=== PATIENT | female | born 1945 | race Caucasian/White ===

== ENCOUNTER 2019-09-04 23:31 | Inpatient (IN) | payer OTHER ==
[~2019-09-04] VITALS: Ht 170.2 cm; Wt 79.0 kg
[2019-09-05] MEDS ORDERED: ONDANSETRON HCL 4 MG/2 ML VIAL IV ONE (00:45)
[2019-09-05] MEDS ORDERED: MORPHINE SULFATE 4 MG/ML SYR/VIAL IV ONE ×2 (00:45→04:15)
[2019-09-05] MEDS ORDERED: LORazepam 2MG/ML-1ML VIAL IV ONE ×3 (01:00→03:15)
[2019-09-05] MEDS ORDERED: SODIUM CHLORIDE 0.9% 500 ML IV ONE ×2 (01:45→13:45)
[2019-09-05 02:34] LABS: Urine Bacteria MANY /hpf (None Seen); Urine Blood Negative /uL (Negative); Urine Specific Gravity 1.013 (1.001-1.035); Urine WBC 117 /hpf (0 - 5); Urine WBC Clumps PRESENT /hpf (None Seen)
[2019-09-05 02:38] LABS: Basophils # (auto) 0 uL; Basophils % (auto) 0.3 % (0.0-2.0); Eosinophils # (auto) 0.1 uL; Eosinophils % (auto) 0.7 % (0.0-7.0); Hematocrit 33.8 % (36.0-46.0); Hemoglobin 11.3 g/dL (12.2-16.2); Lymphocytes # (auto) 1.1 uL; Lymphocytes % (auto) 13.1 % (10.0-50.0); Mean Corpuscular Hemoglobin 27.4 pg (28.0-32.0); Mean Corpuscular Hgb Conc. 33.4 g/dL (32.0-36.0); Monocytes # (auto) 0.4 uL; Monocytes % (auto) 5.1 % (0.0-12.0); Neutrophils % (auto) 80.8 % (37.0-80.0); Platelet Count (auto) 128 10^3/uL (140-450); Red Blood Cells 4.13 10^6/uL (4.0-5.20); Red Cell Distribution Width 18.4 % (11.8-14.3); White Blood Cell 8.7 10^3/uL (4.4-10.8)
[2019-09-05 02:50] LABS: INR 1.06 (0.9-1.15); Partial Thromboplastin Time 23.8 sec (23.64-32.05)
[2019-09-05 02:52] LABS: Albumin 3.7 g/dL (3.4-5.0); Calcium 8.4 mg/dL (8.5-10.1); Potassium 3.7 mmol/L (3.5-5.1)
[2019-09-05 02:57] LABS: Bilirubin, Total 0.3 mg/dL (0.2-1.0); Total Protein 7.1 g/dL (6.4-8.2)
[2019-09-05] MEDS ORDERED: diphenhdrAMINE HCL 50 MG/1 ML VL IV ONE (05:00)
[2019-09-05] MEDS ORDERED: MORPHINE SULFATE 4 MG/ML SYR/VIAL IV PRN (06:00)
[2019-09-05] MEDS ORDERED: HYDROcodone-ACET 5/325MG TAB PO PRN (06:00)
[2019-09-05] MEDS ORDERED: ACETAMINOPHEN 325 MG TAB PO PRN (06:00)
[2019-09-05] MEDS ORDERED: ONDANSETRON HCL 4 MG/2 ML VIAL IV PRN ×2 (06:00→07:00)
[2019-09-05] MEDS ORDERED: TEMAZEPAM 15 MG CAP PO PRN (06:00)
[2019-09-05] MEDS ORDERED: HYDROcodone-ACET 10/325MG TAB PO PRN (07:00)
[2019-09-05] MEDS ORDERED: MORPHINE SULF INJ 2 MG/ML SYRINGE 1ML IV PRN ×2 (07:00)
[2019-09-05] MEDS ORDERED: hydrALAZINE HCL 20 MG/ML VL IV PRN ×2 (07:00)
[2019-09-05] MEDS ORDERED: NITROGLYCERIN 0.4 MG SL TAB SL PRN ×2 (07:00)
[2019-09-05] MEDS: MORPHINE SULF INJ 2 MG/ML SYRINGE 1ML IV PRN ×4 (08:24→20:01)
[2019-09-05] MEDS: ONDANSETRON HCL 4 MG/2 ML VIAL IV PRN ×2 (08:25→15:37)
[2019-09-05] MEDS ORDERED: cefTRIAXone 1GM/50ML D5W 50 ML IV SCH (09:00)
--- NOTE | 2019-09-05 09:00 | NUR ---
RECEIVED REPORT ON PT.
--- NOTE | 2019-09-05 09:40 | NUR ---
REPORT GIVEN TO RNLYNNE.
[2019-09-05 10:00] VITALS: BP 121/84
[2019-09-05] MEDS ORDERED: ENOXAPARIN SOD 40 MG/0.4 ML SYRINGE SC SCH (10:00)
[2019-09-05] MEDS ORDERED: FAMOTIDINE 20 MG TAB PO SCH (10:00)
--- NOTE | 2019-09-05 10:19 | NUR ---
MED/SURG admit from ER TANIA LING admitted to Telemetry unit after SBAR received. Patient oriented to Minerva Thomas, primary RN, unit, room, bed, and unit policies regarding patient care and visiting hours. Patient placed on bedside oxygen, weighed by bedscale and encouraged to call if they need something. All questions and concerns addressed, patient verbalized understanding. Note:
[2019-09-05 11:13] LABS: Urine Bacteria FEW /hpf (None Seen); Urine Blood Negative /uL (Negative); Urine Hyaline Cast FEW /lpf (0 - 2); Urine Specific Gravity 1.014 (1.001-1.035); Urine WBC 144 /hpf (0 - 5)
[2019-09-05 11:27] VITALS: BP 126/64
[2019-09-05] MEDS: HYDROcodone-ACET 10/325MG TAB PO PRN (11:50)
[2019-09-05] MEDS: ALPRAZolam 0.5 MG TAB PO PRN (11:50)
--- NOTE | 2019-09-05 12:30 | NUR ---
SCD'S PATIENT PLACED ON SCD MACHINE FOR RIGHT LEG.
[2019-09-05 13:00] VITALS: BP 129/87
--- NOTE | 2019-09-05 13:13 | NUR ---
DR. MALDONADO CLEARED PATIENT FOR SURGERY.
[2019-09-05] MEDS: cefTRIAXone 1GM/50ML D5W 50 ML IV SCH (13:30)
[2019-09-05] MEDS ORDERED: ceFAZolin 1GM/50ML 50 ML IV SCH (14:00)
--- NOTE | 2019-09-05 14:00 | NUR ---
PLACED PATIENT IN BUCKS TRACTION PER MD ORDERS
[2019-09-05 17:00] VITALS: BP 135/74
--- NOTE | 2019-09-05 18:23 | NUR ---
Dr. Corey Called to check on patients urine culture, and clarification of medication order. plan is to hold off on surgery until Saturday will notify patients megan Rubio.
--- NOTE | 2019-09-05 18:25 | NUR ---
Call to patients son. Called patients son to inform him that surgery will be Saturday.
[2019-09-05] MEDS: SOD CHL 0.45% 1,000 ML IV SCH (18:35)
--- NOTE | 2019-09-05 19:45 | NUR ---
ASSUMED CARE, PT. AWAKE, ORIENTED TO HER NAME, SITTER AT BEDSIDE, MCCLENDON TRACTION IN PLACE, NOT IN DISTRESS.
[2019-09-05 22:00] VITALS: BP 121/71
[2019-09-05] MEDS ORDERED: ATORVASTATIN 20 MG TAB PO SCH (22:00)
[2019-09-05] MEDS ORDERED: DONEPEZIL HYDROCHLORIDE 5 MG TAB PO SCH (22:00)
[2019-09-05] MEDS ORDERED: MIRTAZAPINE 30 MG TAB PO SCH (22:00)
[2019-09-06] MEDS: HYDROcodone-ACET 10/325MG TAB PO PRN ×4 (00:06→21:59)
[2019-09-06] MEDS: ALPRAZolam 0.5 MG TAB PO PRN (00:06)
[2019-09-06 05:00] VITALS: BP 107/67
[2019-09-06 06:24] LABS: Basophils # (auto) 0 uL; Basophils % (auto) 0.4 % (0.0-2.0); Eosinophils # (auto) 0 uL; Eosinophils % (auto) 0.2 % (0.0-7.0); Hematocrit 31.8 % (36.0-46.0); Hemoglobin 10.6 g/dL (12.2-16.2); Lymphocytes # (auto) 1.2 uL; Lymphocytes % (auto) 24.9 % (10.0-50.0); Mean Corpuscular Hemoglobin 27.2 pg (28.0-32.0); Mean Corpuscular Hgb Conc. 33.2 g/dL (32.0-36.0); Mean Corpuscular Volume 82.1 fL (80.0-100.0); Monocytes # (auto) 0.5 uL; Monocytes % (auto) 10.3 % (0.0-12.0); Neutrophils % (auto) 64.2 % (37.0-80.0); Nucleated Red Blood Cells % 0.1 %; Platelet Count (auto) 109 10^3/uL (140-450); Red Blood Cells 3.88 10^6/uL (4.0-5.20); Red Cell Distribution Width 17.8 % (11.8-14.3); White Blood Cell 4.7 10^3/uL (4.4-10.8)
[2019-09-06 06:48] LABS: BUN/Creatinine Ratio 24.6; Calcium 8.1 mg/dL (8.5-10.1); Potassium 3.8 mmol/L (3.5-5.1)
[2019-09-06] MEDS: cefTRIAXone 1GM/50ML D5W 50 ML IV SCH (08:15)
--- NOTE | 2019-09-06 08:15 | NUR ---
Opening Shift Note Assumed care of patient, awake and alert. Oriented patient to hospital and primary RN. No S/S of distress. Patient c/o pain to left hip. Will medicate patient per MD orders. Gage traction to left leg in place, 5 lb weight hanging free. Adame in place, below bladder , free of kinks, tube and system intact. Instructed on POC and to call for assist PRN. Sitter at bedside. Bed in lowest locked position, call light within reach, side rails up x2. Patient refusing assessment, educated patient on importance of RN's assessment, patient still refusing. Patient stated "Get out of my room". Will continue to monitor for changes Q1hr and PRN.
[2019-09-06] MEDS: MORPHINE SULF INJ 2 MG/ML SYRINGE 1ML IV PRN ×3 (08:28→17:55)
--- NOTE | 2019-09-06 09:14 | NUR ---
UA UA SENT TO LAB
--- NOTE | 2019-09-06 09:30 | NUR ---
REFUSING PATIENT REFUSING LOVENOX. EDUCATED PATIENT. PATIENT STILL REFUSING
[2019-09-06 10:00] VITALS: BP 116/68
[2019-09-06] MEDS: ENOXAPARIN SOD 40 MG/0.4 ML SYRINGE SC SCH (10:00)
[2019-09-06] MEDS: SOD CHL 0.45% 1,000 ML IV SCH (12:52)
[2019-09-06 13:00] VITALS: BP 126/82
[2019-09-06 17:52] VITALS: BP 124/51
--- NOTE | 2019-09-06 19:30 | NUR ---
Opening Shift Assumed care of patient, awake and alert. No S/S of distress/SOB or pain. Insructed on POC and to callfor assist PRN, will continue to monitor for changes Q1hr and PRN. lehr attendant at bedside for patient safety. Fall and safety precautions in place. Call light within reach.
--- NOTE | 2019-09-06 21:30 | NUR ---
FAMILY Called and spoke with son Ramiro. Updated on POC. Ramiro verbalized understanding and agreement. Ramiro stated will come to hospital tomorrow 09/07/19 with complete list of patient's home medications for med rec. Will inform day shift RN. Also, Ramiro requesting to be called before patient is taken off floor for scheduled procedure on 09/07/19. Will inform day shift RN
--- NOTE | 2019-09-06 22:00 | NUR ---
TEMP Patient temp at this time 100.3F axillary. Cooling measures applied. Will recheck approximately 1 hour
[2019-09-06 22:03] VITALS: BP 114/72
--- NOTE | 2019-09-06 23:00 | NUR ---
TEMP RECHECK Rechecked patient temp at this time; 99.8F axillary. Continue cooling measures, will continue to monitor
--- NOTE | 2019-09-07 01:00 | NUR ---
TEMP RECHECK Rechecked patient's temp at this time; 99.1F axillary. Will continue cooling measures, continue to monitor
--- NOTE | 2019-09-07 01:30 | NUR ---
DANIELS CLAMP Daniels catheter tubing clamped at this time to collect urine sample. Will recheck approximately 15 minutes
--- NOTE | 2019-09-07 02:00 | NUR ---
URINE SAMPLE Urine sample collected from pittman catheter tubing and sent to lab via bullet. Pittman catheter unclamped. Will continue to monitor
[2019-09-07 03:18] LABS: Urine Bacteria FEW /hpf (None Seen); Urine Blood 1+ /uL (Negative); Urine Mucus FEW (None Seen); Urine Specific Gravity 1.014 (1.001-1.035); Urine WBC 15 /hpf (0 - 5)
[2019-09-07] MEDS: HYDROcodone-ACET 10/325MG TAB PO PRN ×3 (03:39→14:37)
[2019-09-07] MEDS: MORPHINE SULF INJ 2 MG/ML SYRINGE 1ML IV PRN ×4 (05:44→16:54)
[2019-09-07] MEDS: ONDANSETRON HCL 4 MG/2 ML VIAL IV PRN (05:44)
[2019-09-07 06:00] VITALS: BP 130/76
--- NOTE | 2019-09-07 06:00 | NUR ---
EKG/CHG EKG done for pre-op. Patient refusing to cooperate, refusing to lie still for clear EKG. Patient refusing education regarding lying still for clear EKG, stating "please take it off, it hurts, let me go home, I want to go home." EKG done, printed, and placed in hard chart. Patient refusing CHG bath at this time, refusing to turn, refusing to cooperate. Patient stating same statements as EKG. Partial CHG bath could be completed, complete linen change done, and gown changed. Patient did not tolerate well, crying and screaming in pain, even after being pre-medicated with PRN pain medication (see emar).
[2019-09-07 07:26] LABS: INR 1.03 (0.9-1.15); Partial Thromboplastin Time 30.5 sec (23.64-32.05)
[2019-09-07 07:29] LABS: Basophils # (auto) 0 uL; Basophils % (auto) 0.3 % (0.0-2.0); Eosinophils # (auto) 0 uL; Eosinophils % (auto) 0.4 % (0.0-7.0); Hematocrit 35.9 % (36.0-46.0); Hemoglobin 11.9 g/dL (12.2-16.2); Lymphocytes % (auto) 31.3 % (10.0-50.0); Mean Corpuscular Hemoglobin 27.2 pg (28.0-32.0); Mean Corpuscular Hgb Conc. 33.1 g/dL (32.0-36.0); Mean Corpuscular Volume 82.3 fL (80.0-100.0); Monocytes # (auto) 0.6 uL; Monocytes % (auto) 9.9 % (0.0-12.0); Neutrophils # (auto) 3.7 uL; Neutrophils % (auto) 58.1 % (37.0-80.0); Nucleated Red Blood Cells % 0.3 %; Platelet Count (auto) 111 10^3/uL (140-450); Red Blood Cells 4.37 10^6/uL (4.0-5.20); Red Cell Distribution Width 18.1 % (11.8-14.3); White Blood Cell 6.3 10^3/uL (4.4-10.8)
[2019-09-07 07:42] LABS: Calcium 8.1 mg/dL (8.5-10.1); Potassium 3.8 mmol/L (3.5-5.1)
[2019-09-07 07:45] LABS: BUN/Creatinine Ratio 23.1
[2019-09-07 09:00] VITALS: BP 134/77
[2019-09-07] MEDS: cefTRIAXone 1GM/50ML D5W 50 ML IV SCH (09:00)
[2019-09-07] MEDS: ENOXAPARIN SOD 40 MG/0.4 ML SYRINGE SC SCH (10:00)
[2019-09-07] MEDS: SOD CHL 0.45% 1,000 ML IV SCH (10:30)
[2019-09-07] MEDS: ALPRAZolam 0.5 MG TAB PO PRN (10:54)
--- NOTE | 2019-09-07 12:45 | NUR ---
NUTRITION ASSESSMENT NOTES Please refer to link notes of nutrition screen form filed under the intervention section of the plan of care for further details. Est. Needs: 1700 kcal to 2100 kcal (20-25 kcal/kgBW), 67 gms to 84 gms pro (0.8-1.0 gms/kgBW). Will continue to monitor pertinent labs and reassess nutrient need prn Thank you. Addendum: 09/07/19 at [address] Amended: Links added.
[2019-09-07 13:00] VITALS: BP 131/79
[2019-09-07 16:46] VITALS: BP 127/83
--- NOTE | 2019-09-07 19:30 | NUR ---
Opening Shift Assumed care of patient, awake and alert. No S/S of distress/SOB or pain. Insructed on POC and to callfor assist PRN, will continue to monitor for changes Q1hr and PRN. child attendant at bedside and mittens placed on bilateral hands for patient safety and prevention of tube pulling. Fall and safety precautions in place. Call light within reach.
[2019-09-07 23:15] VITALS: BP 139/89
[2019-09-08] MEDS: MORPHINE SULF INJ 2 MG/ML SYRINGE 1ML IV PRN ×4 (00:50→20:41)
[2019-09-08 05:00] VITALS: BP 125/78
[2019-09-08 05:26] LABS: Basophils # (auto) 0 uL; Basophils % (auto) 0.4 % (0.0-2.0); Eosinophils # (auto) 0 uL; Eosinophils % (auto) 0.4 % (0.0-7.0); Hemoglobin 11.2 g/dL (12.2-16.2); Lymphocytes # (auto) 1.1 uL; Lymphocytes % (auto) 20.7 % (10.0-50.0); Mean Corpuscular Hgb Conc. 32.9 g/dL (32.0-36.0); Monocytes # (auto) 0.5 uL; Monocytes % (auto) 9.8 % (0.0-12.0); Neutrophils # (auto) 3.6 uL; Neutrophils % (auto) 68.7 % (37.0-80.0); Nucleated Red Blood Cells % 0.1 %; Platelet Count (auto) 118 10^3/uL (140-450); Red Blood Cells 4.15 10^6/uL (4.0-5.20); Red Cell Distribution Width 17.6 % (11.8-14.3); White Blood Cell 5.2 10^3/uL (4.4-10.8)
--- NOTE | 2019-09-08 06:00 | NUR ---
CHG Patient refusing and not cooperating for CHG bath. Attempted to educate patient importance of CHG bath before procedure and linen change, but patient refusing education, stating "It hurts, just please take it out, please take these off, it hurts" and crying. Will inform day shift RN that CHG bath not done
[2019-09-08] MEDS: SOD CHL 0.45% 1,000 ML IV SCH (06:15)
--- NOTE | 2019-09-08 07:30 | NUR ---
RECEIVED REPORT FROM NIGHT NURSE. PATIENT RESTING IN BED, ALERT TO SELF, CONTINUES TO CALL OUT FOR HELP AND REPEATING OVER AND OVER THAT SHE WANTS TO GO HOME. SITTER AT BEDSIDE, TANNER ON TIMES 2, PATIENT CONTINUES TO PULL AT IV LINES AND DANIELS LINE. VITALS STABLE. NPO STATUS FOR PROCEDURE.
[2019-09-08 08:02] LABS: Calcium 8.1 mg/dL (8.5-10.1); Potassium 3.9 mmol/L (3.5-5.1)
[2019-09-08 08:15] VITALS: BP 134/69
[2019-09-08] MEDS ORDERED: ONDANSETRON HCL 4 MG/2 ML VIAL ONE (08:24)
[2019-09-08] MEDS ORDERED: fentaNYL CITRATE 100 MCG/2 ML VL ONE (08:24)
[2019-09-08] MEDS ORDERED: PROPOFOL 10 MG/ML 20 ML IV ONE (08:24)
[2019-09-08] MEDS ORDERED: BUPIVACAINE/DEXTROSE MPF 0.75% 2 ML AMP IT ONE (08:24)
[2019-09-08] MEDS ORDERED: MORPHINE SULF(PF) 0.5MG/ML 10ML VIAL ONE (08:24)
[2019-09-08] MEDS ORDERED: MIDAZOLAM HCL 1MG/1ML-2 ML VIAL ONE ×2 (08:24→10:26)
[2019-09-08] MEDS ORDERED: SODIUM CHLORIDE LOCK 10 ML ONE (08:24)
[2019-09-08] MEDS ORDERED: EPINEPHrine HCL 1 MG/1 ML AMP ONE (08:25)
[2019-09-08] MEDS ORDERED: ceFAZolin 1GM/50ML 50 ML IV ONE (08:43)
--- NOTE | 2019-09-08 08:46 | NUR ---
PATIENT TAKEN DOWN FOR PROCEDURE.
[2019-09-08] MEDS: cefTRIAXone 1GM/50ML D5W 50 ML IV SCH (09:00)
[2019-09-08] MEDS: ENOXAPARIN SOD 40 MG/0.4 ML SYRINGE SC SCH (09:08)
[2019-09-08] MEDS ORDERED: TETRACAINE 1% INJ 2 ML VIAL IJ ONE (10:26)
[2019-09-08] MEDS ORDERED: NALOXONE HCL 0.4 MG/ML VIAL IV PRN (12:30)
[2019-09-08] MEDS ORDERED: diphenhdrAMINE HCL 50 MG/1 ML VL IV PRN (12:30)
[2019-09-08] MEDS ORDERED: HYDROmorphone HCL 2 MG/ML VL IV PRN (12:30)
[2019-09-08] MEDS ORDERED: METOCLOPRAMIDE HCL 5MG/ml INJ 2ml VIAL IV PRN (12:30)
[2019-09-08] MEDS ORDERED: fentaNYL CITRATE 100 MCG/2 ML VL IV PRN (12:30)
[2019-09-08 13:21] VITALS: BP 139/69
[2019-09-08 13:29] VITALS: BP 126/84
[2019-09-08] MEDS: ceFAZolin 1GM/50ML 50 ML IV SCH ×2 (15:21→20:41)
[2019-09-08 16:35] VITALS: BP 119/76
--- NOTE | 2019-09-08 19:30 | NUR ---
Opening Shift Assumed care of patient, awake and alert. No S/S of distress/SOB or pain. Insructed on POC and to callfor assist PRN, will continue to monitor for changes Q1hr and PRN. reducing salon attendant at bedside and mittens placed on bilateral hands for patient safety and prevention of tube pulling. Fall and safety precautions in place. Call light within reach.
[2019-09-08 21:00] VITALS: BP 103/65
--- NOTE | 2019-09-09 01:30 | NUR ---
URINE SAMPLE Adame tubing clamped, urine sample collected, and sent to lab via bullet. Adame tubing unclamped, patient tolerated well. Will continue to monitor
[2019-09-09 01:54] LABS: Urine Bacteria FEW /hpf (None Seen); Urine Blood TRACE /uL (Negative); Urine Hyaline Cast FEW /lpf (0 - 2); Urine Specific Gravity 1.022 (1.001-1.035); Urine WBC 2 /hpf (0 - 5)
[2019-09-09 05:00] VITALS: BP 135/76
[2019-09-09] MEDS: SOD CHL 0.45% 1,000 ML IV SCH ×2 (06:00→22:30)
[2019-09-09] MEDS: ceFAZolin 1GM/50ML 50 ML IV SCH ×3 (06:01→21:30)
[2019-09-09] MEDS: MORPHINE SULF INJ 2 MG/ML SYRINGE 1ML IV PRN ×2 (06:01→12:05)
--- NOTE | 2019-09-09 07:30 | NUR ---
RECEIVED REPORT FROM NIGHT NURSE. PATIENT RESTING IN BED, ALERT TO SELF. SITTER AT BEDSIDE, MITTENS ON TIMES 2, PATIENT CONTINUES TO PULL AT IV LINES AND DANIELS LINE. VITALS STABLE.
[2019-09-09 08:21] LABS: Basophils # (auto) 0 uL; Basophils % (auto) 0.3 % (0.0-2.0); Eosinophils # (auto) 0 uL; Hematocrit 32.7 % (36.0-46.0); Hemoglobin 10.8 g/dL (12.2-16.2); Lymphocytes # (auto) 0.8 uL; Lymphocytes % (auto) 11.4 % (10.0-50.0); Mean Corpuscular Hgb Conc. 32.9 g/dL (32.0-36.0); Monocytes # (auto) 0.7 uL; Monocytes % (auto) 9.8 % (0.0-12.0); Neutrophils # (auto) 5.3 uL; Neutrophils % (auto) 78.5 % (37.0-80.0); Platelet Count (auto) 124 10^3/uL (140-450); Red Blood Cells 3.99 10^6/uL (4.0-5.20); Red Cell Distribution Width 17.4 % (11.8-14.3); White Blood Cell 6.8 10^3/uL (4.4-10.8)
[2019-09-09 08:38] LABS: BUN/Creatinine Ratio 24.7; Potassium 3.8 mmol/L (3.5-5.1)
[2019-09-09 09:00] VITALS: BP 134/88
[2019-09-09] MEDS: cefTRIAXone 1GM/50ML D5W 50 ML IV SCH (09:29)
[2019-09-09] MEDS: ENOXAPARIN SOD 40 MG/0.4 ML SYRINGE SC SCH (09:30)
--- NOTE | 2019-09-09 10:45 | NUR ---
PT AT BEDSIDE. PATIENT UP AND SITTING IN CHAIR. SITTER AT BEDSIDE.
--- NOTE | 2019-09-09 10:54 | NUR ---
DR. MA AT BEDSIDE. ORDERS RECEIVED, WILL PLACE AND CARRY OUT.
[2019-09-09] MEDS ORDERED: BISACODYL 5 MG EC TAB PO ONE (11:00)
[2019-09-09] MEDS ORDERED: POLYETHYLENE GLYCOL 17 GM PWDR PO ONE (11:00)
[2019-09-09] MEDS ORDERED: POLYETHYLENE GLYCOL 17 GM PWDR PO PRN (11:00)
[2019-09-09 13:00] VITALS: BP 132/81
--- NOTE | 2019-09-09 15:06 | NUR ---
assessment Patient is a 74 year old female who is confused. Per patients megan Rubio prior to admission patient resided at [facility] and functioned with staff assistance. Patients PCP is Dr Chakraborty. Per Ramiro patient has a rollator for home use. Per Ramiro patient was in the main room and was walking without her walker and tripped over the rug and fell and broke her hip. Per Ramiro he is requesting SNF for rehab on discharge. I informed Ramiro he has a right to speak to a social insurance adviser regarding all care. I informed Ramiro he has a right to participate in any and all discharge planning. Patient does not have a POA and advanced directive. I have offered Ramiro information on POA and advanced directives and that he would have to go through the court while patient is confused. Ramiro verbalized understanding and agreed to discharge plan to SNF. Addendum: 09/09/19 at 1525 by Damaris BENITES Amended: Links added.
[2019-09-09 17:00] VITALS: BP 133/78
[2019-09-09] MEDS: HALOPERIDOL 1 MG TAB PO PRN (17:12)
--- NOTE | 2019-09-09 17:15 | NUR ---
SPOKE WITH DOCTOR MA, ORDERS FOR TELE PSYCH FOR DEMENTIA/ MED REQ OBTAINED. WILL PLACE AND CARRY OUT.
--- NOTE | 2019-09-09 19:55 | NUR ---
ASSUMED CARE, PT. AWAKE, CONFUSED, SITTER AT BEDSIDE, PT. ORIENTED TO HER NAME, DRESSING ON LT. HIP DRY AND INTACT, NOT IN DISTRESS.
[2019-09-09 22:00] VITALS: BP 114/70
[2019-09-10 05:22] LABS: Basophils # (auto) 0 uL; Basophils % (auto) 0.2 % (0.0-2.0); Eosinophils # (auto) 0 uL; Eosinophils % (auto) 0.1 % (0.0-7.0); Hematocrit 30.9 % (36.0-46.0); Hemoglobin 10.4 g/dL (12.2-16.2); Lymphocytes # (auto) 1.1 uL; Lymphocytes % (auto) 17.1 % (10.0-50.0); Mean Corpuscular Hemoglobin 27.1 pg (28.0-32.0); Mean Corpuscular Hgb Conc. 33.5 g/dL (32.0-36.0); Mean Corpuscular Volume 80.9 fL (80.0-100.0); Monocytes # (auto) 0.7 uL; Monocytes % (auto) 9.8 % (0.0-12.0); Neutrophils # (auto) 4.9 uL; Neutrophils % (auto) 72.8 % (37.0-80.0); Platelet Count (auto) 133 10^3/uL (140-450); Red Blood Cells 3.82 10^6/uL (4.0-5.20); Red Cell Distribution Width 17.5 % (11.8-14.3); White Blood Cell 6.7 10^3/uL (4.4-10.8)
[2019-09-10] MEDS: ceFAZolin 1GM/50ML 50 ML IV SCH ×2 (05:30→16:11)
[2019-09-10 05:41] VITALS: BP 130/74
[2019-09-10 05:43] LABS: BUN/Creatinine Ratio 31.8; Calcium 7.9 mg/dL (8.5-10.1); Potassium 3.4 mmol/L (3.5-5.1)
--- NOTE | 2019-09-10 07:30 | NUR ---
RECEIVED REPORT FROM NIGHT NURSE. PATIENT RESTING IN BED. ALERT TO SELF, CONTINUES TO PULL AT LINES/ IV. MITTENS ON X2, SITTER AT BEDSIDE.
[2019-09-10 08:55] VITALS: BP 145/72
--- NOTE | 2019-09-10 09:30 | NUR ---
PT AT BEDSIDE, WORKING WITH PATIENT.
[2019-09-10] MEDS: cefTRIAXone 1GM/50ML D5W 50 ML IV SCH (09:56)
[2019-09-10] MEDS: ENOXAPARIN SOD 40 MG/0.4 ML SYRINGE SC SCH (09:56)
--- NOTE | 2019-09-10 11:31 | NUR ---
Nutrition Follow-up Notes Wt.: 78.3 kg Pt was awake with PT at bedside. per records pt with confusion and dementia. pt is currently on regular diet with adequate PO of 75% x 4 per RN doc. pt with no distress noted per nursing Est. Needs: 1700 kcal to 2100 kcal (20-25 kcal/kgBW), 67 gms to 84 gms pro (0.8-1.0 gms/kgBW). Will continue to monitor pertinent labs and reassess nutrient need prn Labs: GLU 132 H, CA 7.9 L, BUN 21 H Skin: Paul scale 14, mod risk, s/p hip sx per organizational research consultant. GI: Pt has no BM reported per organizational research consultant. PES: Altered nutrition related lab values r/t current/chronic medical condition aeb hypocalcemia, elev. ALP level. Will continue to monitor PO intake, skin status, pertinent labs and weight trend. F/u in 3-5 days. Rec.: 1.) Resume oral diet when medically appropriate.2.) Continue close supervision and feeding assistance prn during meals. 3.) Refer to RD for further nutrition educ. and weight monitoring upon discharge. 4.) Continue current plan of care.
[2019-09-10] MEDS: MORPHINE SULF INJ 2 MG/ML SYRINGE 1ML IV PRN (11:57)
[2019-09-10 13:00] VITALS: BP 105/59
--- NOTE | 2019-09-10 15:07 | NUR ---
SPOKE TO DOCTOR MA, ORDER FOR SOCIAL SERVICE CONSULT FOR HOSPICE RECEIVED, WILL PLACE AND CARRY OUT.
--- NOTE | 2019-09-10 15:48 | NUR ---
SPOKE TO PATIENT'S SON, JENNIFER. JENNIFER STATES THAT HE DIES NOT WANT THE PATIENT TO GO HOME ON HOSPICE, HE WANTS THE PATIENT TO GO TO A NURSING FACILITY. WILL NOTIFY DOCTOR.
--- NOTE | 2019-09-10 15:55 | NUR ---
SPOKE WITH DOCTOR MA, INFORMED HIM THAT PATIENT'S SON DOES NOT WANT HOSPICE. HE STATED THAT HE WOULD CONTACT THE RETAIL SOLAR ADVISOR.
--- NOTE | 2019-09-10 16:00 | NUR ---
D/C Planning Per consult for hospice. Information and choice letter was given to Pt megan Rubio via phone. Pt son requested [facility]. Pt son stated Pt will be returning to [facility] Ph:) [address] [place], [place]. Contacted [facility] Ph:( [phone]) Fax:) faxed medical records. Per Beatriz from [facility] order has been received and service to start upon d/c day. Will set up transportation upon d/c day. Informed RN Lashay Addendum: 09/11/19 at 0837 by KELIN SCHOFIELD Amended: Links added.
[2019-09-10] MEDS: HALOPERIDOL 1 MG TAB PO PRN (16:12)
[2019-09-10 17:00] VITALS: BP 109/68
--- NOTE | 2019-09-10 17:18 | NUR ---
SPOKE WITH DOCTOR MA, PATIENT'S SON JENNIFER HAS DECIDED TO GO FORWARD WITH HOSPICE. DISCHARGE ON [facility] HOSPICE TO [facility] 09/11
[2019-09-10] MEDS: SOD CHL 0.45% 1,000 ML IV SCH (17:55)
[2019-09-10 22:00] VITALS: BP 119/77
[2019-09-11 05:30] VITALS: BP 122/69
[2019-09-11 05:35] LABS: Basophils # (auto) 0 uL; Basophils % (auto) 0.4 % (0.0-2.0); Eosinophils # (auto) 0.1 uL; Eosinophils % (auto) 1.6 % (0.0-7.0); Hematocrit 29.7 % (36.0-46.0); Hemoglobin 9.9 g/dL (12.2-16.2); Lymphocytes # (auto) 1.6 uL; Lymphocytes % (auto) 33.1 % (10.0-50.0); Mean Corpuscular Hemoglobin 27.3 pg (28.0-32.0); Mean Corpuscular Hgb Conc. 33.4 g/dL (32.0-36.0); Mean Corpuscular Volume 81.6 fL (80.0-100.0); Monocytes # (auto) 0.5 uL; Neutrophils # (auto) 2.6 uL; Neutrophils % (auto) 54.9 % (37.0-80.0); Platelet Count (auto) 143 10^3/uL (140-450); Red Blood Cells 3.63 10^6/uL (4.0-5.20); Red Cell Distribution Width 17.4 % (11.8-14.3); White Blood Cell 4.7 10^3/uL (4.4-10.8)
[2019-09-11 05:55] LABS: Calcium 7.9 mg/dL (8.5-10.1); Potassium 3.4 mmol/L (3.5-5.1)
[2019-09-11 05:58] LABS: BUN/Creatinine Ratio 36.9
--- NOTE | 2019-09-11 07:15 | NUR ---
Opening shift note Assumed care of patient from assistant casino shift manager nurse. Patient alert and oriented to self. sitter present. Patient informed of plan of care and verbalizes understanding. Bed in lowest position, side rails up x2, call light in reach. Will continue to monitor.
[2019-09-11] MEDS: HYDROcodone-ACET 10/325MG TAB PO PRN (08:40)
[2019-09-11 09:00] VITALS: BP 94/50
[2019-09-11] MEDS: cefTRIAXone 1GM/50ML D5W 50 ML IV SCH (09:00)
--- NOTE | 2019-09-11 09:01 | NUR ---
D/C Planning Followed up call to [facility] spoke to Beatriz. Advised Beatriz Pt will be d/c today. Contacted [facility] Ph:) spoke to Higinio. Advised Higinio to arrange transportation between 14:00-15:00 via [id number]. Informed MILKA Newman. Addendum: 09/11/19 at 0903 by KELIN BENITES Amended: Links added.
[2019-09-11] MEDS: ENOXAPARIN SOD 40 MG/0.4 ML SYRINGE SC SCH (10:11)
[2019-09-11 13:00] VITALS: BP 113/66
[2019-09-11 13:46] VITALS: BP 94/50
--- NOTE | 2019-09-11 14:18 | NUR ---
Discharge instructions given as ordered. Encourage to follow up with PMD as instructed. All questions and concerns addressed. Patient verbalized understanding. Medication reconciliation form completed and copy given to patient. Home medications held in Pharmacy returned to patient, and no needed vaccines given. IV removed with catheter intact, pressure dressing applied, pittman catheter removed. Patient taken to vehicle via wheelchair with all personal belongings, accompanied by staff and family member. No distress noted at time of departure.
--- NOTE | 2019-09-11 14:18 | NUR ---
SENT TRANSFER PAPER WORK WITH PATIENT HOWEVER PATIENT IS BEING DISCHARGED TO HER RESIDENCE AT [facility] . THIS IS NOT AN ACUTE TO ACUTE TRANSFER. PER CASE MANAGEMENT NO TRANSFER PAPERS NEED TO BE FILLED OUT, HOSPICE NURSE WILL RE DO MED REC.
== END 2019-09-11 18:47 | disposition hospice, home (50) | DRG 481 ==
LOC: EDBD 23:31 → ER 23:31 → OVERFLOW 23:32 → WEST WING 09-05 09:40
PROVIDERS: ADMIT Internal Medicine; ATTEND Internal Medicine
PROC: 0QS706Z Reposition Left Upper Femur with Intramedullary Internal Fixation Device, Open Approach (ICD-10-PCS; principal; 2019-09-08 10:45)
DX: S72.142A Displaced intertrochanteric fracture of left femur, initial encounter for closed fracture (principal); N39.0 Urinary tract infection, site not specified; I50.9 Heart failure, unspecified; I11.0 Hypertensive heart disease with heart failure; F03.90 Unspecified dementia, unspecified severity, without behavioral disturbance, psychotic disturbance, mood disturbance, and anxiety; E78.5 Hyperlipidemia, unspecified; M19.90 Unspecified osteoarthritis, unspecified site; W18.39XA Other fall on same level, initial encounter; Y93.89 Activity, other specified; Z82.49 Family history of ischemic heart disease and other diseases of the circulatory system; Y92.89 Other specified places as the place of occurrence of the external cause; Y99.8 Other external cause status
CPT/HCPCS: 36415; 51702; 71045; 72192; 73502; 74018; 76000; 80048; 80053; 81001; 85025; 85610; 85730; 86850; 86900; 86901; 87081; 87086; 93005; 93306; 96361; 96374; 96375; 96376; 97110; 97530; A4565; C1713; G0378; J0171; J0690; J0696; J2250; J2405; J2704

== ENCOUNTER 2019-12-14 19:13 | Emergency (ER) | payer OTHER ==
[~2019-12-14] VITALS: Ht 160 cm; Wt 68.9 kg
[2019-12-14] MEDS ORDERED: EPINEPHrine HCL 1 MG/10 ML SYRG IV ONE (19:14)
[2019-12-14] MEDS ORDERED: SODIUM BICARBONATE 8.4% INJ 50ML SYRINGE IV ONE (19:14)
[2019-12-14] MEDS ORDERED: ETOMIDATE (2MG/ML) 20ML VIAL IV ONE ×2 (19:16→19:45)
[2019-12-14] MEDS ORDERED: SUCCINYLCHOLINE CHLORIDE 20 MG/ML 10ML VIAL IV ONE ×2 (19:16→19:45)
[2019-12-14 19:30] VITALS: BP 113/73
[2019-12-14] MEDS ORDERED: MIDAZOLAM DRIP 50 mg/50mL 50 ML IV ONE (19:30)
[2019-12-14] MEDS ORDERED: ONDANSETRON HCL 4 MG/2 ML VIAL IV ONE (19:30)
[2019-12-14] MEDS ORDERED: MIDAZOLAM DRIP 50 mg/50mL 50 ML IV SCH ×2 (19:38→19:45)
[2019-12-14 19:53] LABS: Basophils # (auto) 0 uL; Basophils % (auto) 0.5 % (0.0-2.0); Eosinophils # (auto) 0 uL; Eosinophils % (auto) 0.2 % (0.0-7.0); Hematocrit 57.1 % (36.0-46.0); Hemoglobin 18.1 g/dL (12.2-16.2); Lymphocytes # (auto) 3.2 uL; Lymphocytes % (auto) 38.7 % (10.0-50.0); Mean Corpuscular Hemoglobin 26.3 pg (28.0-32.0); Mean Corpuscular Hgb Conc. 31.7 g/dL (32.0-36.0); Mean Corpuscular Volume 82.8 fL (80.0-100.0); Monocytes # (auto) 1.1 uL; Monocytes % (auto) 13.2 % (0.0-12.0); Neutrophils # (auto) 3.9 uL; Neutrophils % (auto) 47.4 % (37.0-80.0); Nucleated Red Blood Cells % 0.2 %; Platelet Count (auto) 302 10^3/uL (140-450); Red Blood Cells 6.89 10^6/uL (4.0-5.20); Red Cell Distribution Width 17.8 % (11.8-14.3); White Blood Cell 8.3 10^3/uL (4.4-10.8)
[2019-12-14 20:20] LABS: INR 1.31 (0.9-1.15); Partial Thromboplastin Time 24.5 sec (23.64-32.05)
[2019-12-14 20:21] LABS: Lactic Acid w/Reflex 9.7 mmol/L (0.4-2.0)
--- NOTE | 2019-12-16 08:06 | NUR ---
[facility] CALLED THEY WILL BE PICKING UP [facility] AND WILL BRING RELEASE
== END 2019-12-14 20:58 | disposition expired ==
LOC: EDBD 19:13 → ER 19:13
DX: A41.9 Sepsis, unspecified organism (principal); I46.9 Cardiac arrest, cause unspecified; R41.82 Altered mental status, unspecified; J69.0 Pneumonitis due to inhalation of food and vomit; G97.81 Other intraoperative complications of nervous system; I11.0 Hypertensive heart disease with heart failure; I50.9 Heart failure, unspecified; E78.5 Hyperlipidemia, unspecified
CPT/HCPCS: 31500; 36415; 36600; 71045; 82805; 82962; 83605; 83880; 85025; 85379; 85610; 85730; 87040; 92950; 99152; 99153; 99291; J0171; J0330; J2250; 94002